=== PATIENT | male | born 1990 | race Caucasian/White ===

== ENCOUNTER 2025-04-11 20:27 | Observation (INO) | payer OTHER, SELFPAY ==
[2025-04-11 12:47] VITALS: BP 151/96
[2025-04-11 13:09] LABS: % Basophils 0.4 % (0-2); % Eosinophils 0.2 % (0-6); % Immature Granulocytes 0.5 % (0-0.5); % Monocytes 6.3 % (1.7-9.3); % Neutrophils 72.6 % (42.2-75.2); Absolute Lymphocytes 1.6 10^3/uL (1.2-3.4); Absolute Monocytes 0.5 10^3/uL (0.1-0.6); Hematocrit 45.4 % (39.0-52.0); Hemoglobin 15.7 g/dL (13.0-18.0); Mean Corp Hgb Conc. 34.6 g/dL (33.0-37.0); Mean Corpuscular Hgb 27.8 pg (27.0-31.0); Mean Corpuscular Volume 80.4 fL (80.0-94.0); Mean Platelet Volume 9.9 fL (7.4-10.4); Nucleated Red Blood Cells % 0 % (-); Platelet Count 242 10^3/uL (130-400); Red Blood Cell Count 5.65 10^6/uL (4.70-6.10); Red Cell Dist. Width 12.8 % (11.5-14.5); White Blood Cell Count 8.2 10^3/uL (4.8-10.8)
[2025-04-11 13:30] LABS: ALT (SGPT) 34 U/L (0-50); AST (SGOT) 30 U/L (17-59); Albumin 4.9 g/dl (3.5-5.0); Alkaline Phosphatase 67 U/L (38-126); Blood Urea Nitrogen 18 mg/dl (9-20); Calcium 9.8 mg/dl (8.4-10.2); Carbon Dioxide 26 mmol/L (22-30); Chloride 105 mmol/L (98-107); Glucose 112 mg/dl (70-99); Lipase 50 U/L (23-300); Potassium 4.1 mmol/L (3.5-5.1); Sodium 139 mmol/L (135-145); Total Bilirubin 1.7 mg/dl (0.2-1.3); Total Protein 7.9 g/dl (6.3-8.2); eGFR > 60.00
--- NOTE | 2025-04-11 15:17 | ED.GENMED ---
History of Present Illness
General
Chief Complaint: Abdominal Symptoms
Source: patient
Exam Limitations: none
Time Seen by Provider: 04/11/25 15:04
Nursing documentation reviewed up to this point in time: agreed with
History of Present Illness
History of Present Illness:
patient without any significant past medical history, presents ED secondary to worsening abdominal pain over the past 5 hours, which developed while he was at work this morning. Abdominal pain described as sharp, nonradiating, without any
alleviating or exacerbating factors. Denies fever or chills. Denies nausea or vomiting. Patient does report a bout of diarrhea this morning, which is not unusual for him. Patient did not experience any pain when he woke up this morning. Patient
reports having had bananas and multivitamins, prior to start of his pain. Denies previous history of similar symptoms. Denies sick contact. Denies recent change in diet. Denies recent travel. Denies previous history of similar symptoms. Denies
difficulty with urination. Denies smoking, but does report drinking occasionally. Patient does report having had 3 cans of twisted tea last night with dinner.
Review of Systems
Review of Systems
Allergies reviewed?: Yes
All Other Systems: ROS reviewed and negative except as documented in HPI and ROS
Constitutional: Reports no symptoms; Denies fever
EENT: Reports no symptoms
Respiratory: Reports no symptoms
Cardiac: Reports no symptoms
ABD/GI: Reports abdominal pain and diarrhea; Denies vomiting
Musculoskeletal: Reports no symptoms
Skin: Reports no symptoms
Neurological: Reports no symptoms
Phy Exam
Physical Exam
Physical Exam:
Physical Exam
General: mild painful distress, not acutely ill. afebrile
Head: nc/at. eomi
Neck: supple. normal range of motion.
Heart: s1/s2 regular rate and rhythm
Lungs: no acute respiratory distress. clear bilaterally
Abdomen: normal bowel sounds. moderate radha-umbilical tenderness to palpation, without mild guarding. no distention
Neuro: alert and oriented x 3. no focal neurological deficits
Skin: no rash
Psychiatric: well kept. interactive and cooperative
Extremities: no edema. no calf tenderness
Course
Orders/Labs/Results
Orders:
Orders
04/11/25 13:03
Complete Blood Count/With Diff Urgent
Comprehensive Metabolic Panel Urgent
Lipase Urgent
04/11/25 15:13
HYDROmorphone [Dilaudid] 0.5 mg IV NOW STA
Ondansetron Injectable [Zofran] 4 mg IV NOW STA
04/11/25 15:15
0.9% Sodium Chloride 500 ml [Nss] 500 ml IV BOLUS
04/11/25 15:19
Ondansetron Injectable [Zofran] 4 mg IV NOW STA
04/11/25 15:38
Urinalysis Reflex To Culture Urgent
Date Specimen was Collected: 04/11/25
Time Specimen was Collected: 15:33
Urine Microscopic Reflex Cult Urgent
04/11/25 15:53
Fentanyl Citrate/Pf [Sublimaze] 50 mcg IV NOW STA
04/11/25 15:58
CT Abd/pelvis W Iv Cont Urgent
Comment:
Reason For Exam: periumbilical tenderness
04/11/25 18:44
Lactate Level [Lactic Acid] Urgent
04/11/25 19:57
Admit/Transfer Patient As Directed
Co-Sign Provider:
Level of Care: Observation services
Assign to:: Medical/Surgical
Physician / Group: Gary
Diagnosis: SBO v enteritis
PRN Pain Medication Management As Directed
May give lesser potent ordered pain med per pt: Yes
preference::
Protocol:: Medication orders for pain may be administered in a
manner that supports deferring to patient preference
when the pt is:
- Requesting an ordered lesser potent pain medication.
Least to most potent pain medications are defined
as: acetaminophen < NSAID < tramadol < opioids
(morphine, oxycodone, hydromorphone).
- Requesting a lesser dose of the same medication IF
ORDERED.
- Requesting a less intrusive route of administration
if both routes are prescribed by the provider (PO <
IV).
04/11/25 19:58
Code Status As Directed
Resuscitation Status: Full Code
Abnormal Lab Results
04/11/25 04/11/25
13:03 15:38
Lymphocytes % 20.0 L %
(20.5-51.1)
Glucose 112 H mg/dl
(70-99)
Total Bilirubin 1.7 H mg/dl
(0.2-1.3)
Urine Ketones 3+ A
(Negative)
Ur Occult Blood Reflex 2+ A
(Negative)
Urine RBC 3-6 A /HPF
(0-2)
Urine Bacteria (Reflex) Few A
(Negative)
Urine Albumin (Reflex) 2+ A
(Neg - Trace)
04/11/25 13:03
04/11/25 13:03
Vital Signs
Initial and Last Documented VS:
Initial Vital Signs
Temp Pulse Resp BP Pulse Ox
98.6 F 71 16 151/96 99
04/11/25 12:47 04/11/25 12:47 04/11/25 12:47 04/11/25 12:47 04/11/25 12:47
Last Documented Vital Signs
Temp Pulse Resp BP Pulse Ox
98.6 F 71 16 136/76 94
04/11/25 12:47 04/11/25 12:47 04/11/25 12:47 04/11/25 19:03 04/11/25 22:00
MDM/Problems Addressed
MDM/Problems Addressed:
CT report reviewed and discussed with patient and family. Discussed with on-call surgery, Dr. Cruz, via [place] text. Feels that CT findings are less likely SBO. As such recommends potential repeat CT abdomen pelvis with oral contrast, if
symptoms persist. Patient will be admitted to hospitalist service tonight for observation.
*Critical Care Note
Total Time (30-74mins, 75-104mins- exclusive of procedures): Not Applicable
ED Attending Note
-
Portions of this chart may have been created with voice recognition software.� Occasional wrong word or��sound alike� substitutions may have occurred due to the inherent limitations of voice recognition software.
Discharge Plan
Departure
Patient Disposition: Admit
Date of Disposition: 04/11/25
Time of Disposition: 19:19
Admit to: Med/Surg
Presentation/result/management discussed w/ accepting MD/DO: Hospitalist
Discharge Problem:
Abdominal pain, Abnormal CT of the abdomen
Interventions
Interventions:
*Risk Screen - Suicide Last Done: 04/11/25 12:49
*General Assessment Last Done: 04/11/25 19:00
*Neglect/Abuse Screening Last Done: 04/11/25 12:49
*ED- Fall Risk Assessment Last Done: 04/11/25 19:00
*ED COVID-19 Vaccine History Last Done: 04/11/25 15:45
YA-Zokodz-Omkaaqfqij Assessment Last Done: 04/11/25 15:45
[2025-04-11] MEDS: ZOFRAN 4 MG IV (15:31)
[2025-04-11] MEDS: NSS 500 IV (15:31)
[2025-04-11] MEDS: DILAUDID 0.5 MG IV (15:31)
[2025-04-11] MEDS: SUBLIMAZE 50 MCG IV (15:58)
[2025-04-11 16:09] LABS: Urine Albumin 2+ (Neg - Trace); Urine Bilirubin Negative (Negative); Urine Character Clear (Clear); Urine Color Yellow; Urine Glucose Negative (Negative); Urine Ketone 3+ (Negative); Urine Leukocyte Negative (Negative); Urine Nitrite Negative (Negative); Urine Occult Blood 2+ (Negative); Urine Specific Gravity 1.015 (<1.030); Urine Urobilinogen Negative (Neg - 1+)
[2025-04-11 17:03] LABS: Urine Bacteria Few (Negative); Urine Squamous Cell 0-2 /LPF (Few); Urine White Cell 0-2 /HPF (0-5)
[2025-04-11 17:15] VITALS: BP 122/87
[2025-04-11 19:03] VITALS: BP 136/76
--- NOTE | 2025-04-11 20:01 | HPS.HSE ---
Family Physician
-
Family Physician: * NONE
Chief Complaint
-
Abd Pain, N/V
History of Present Illness
Patient is a 34y M with no significant PMH who presents to ED complaining of abdominal pain. Patient states that he woke this AM feeling well. He had iced coffee, a banana and a multivitamin. Later in the AM he noted lower abdominal pain while
driving. The pain persisted throughout the morning - migrating to the upper abdomen then central abdomen with radiation into the back. Patient states that the pain became more severe. He had a single, loose, non-bloody stool early this AM.
Patient presented to the ED for further evaluation. While in the ED his symptoms became significantly worse. He was writhing in pain. He had multiple episodes of non-bloody, bilious emesis without any appreciable change in his symptoms.
Patient received minimal relief with meds here in the ED.
Around 4:30 PM, patient states that he felt a sharp pain in the L abdomen. Following this his other symptoms dramatically improved.
At the time of my examination, patient was resting comfortably with only minimal abdominal discomfort.
He denies any prior history of similar symptoms.
Medical History
Past Medical History
Past Medical History: Reports None
Past Surgical History: Reports None
Social History
Tobacco: Non-smoker
Alcohol: Occasional
Drug: None
Family History
Family History: Not pertinent
Allergies / Home Medications
Allergies reflects when Allergies were last updated in [employer].
Home Medications with original date entered in [employer]
Allergy/Medication List:
Allergies
Allergy/AdvReac Type Severity Reaction Status Date / Time
No Known Allergies Allergy Unverified 04/11/25 12:49
Home Medications
therapeutic multivitamin 1 tab PO DAILY 04/11/25
Review of Systems
-
History Source: Patient
A 12 point ROS was completed and negative except as noted: Yes
Constitutional: Denies Fever, Fatigue or Chills
Respiratory: Denies Cough or Trouble Breathing
Cardiac: Denies Chest Pain or Palpitations
Abdomen/GI: Reports Abdominal Pain, Nausea, Vomiting and Diarrhea; Denies Bloody Stools or Black Stools
: Denies Dysuria or Frequency
Musculoskeletal: Denies Joint Pain or Edema
Neurological: Denies Dizzy or Headache
Physical Exam
Vital Signs
Vital Signs
Temp Pulse Resp BP Pulse Ox
98.6 F 71 16 136/76 99
04/11/25 12:47 04/11/25 12:47 04/11/25 12:47 04/11/25 19:03 04/11/25 19:45
Physical Exam
General: Other (34y M in no distress.)
HEENT: Moist mucous membranes and PERRLA
Respiratory: Clear; No Wheezes, Rales or Rhonchi
Cardiac: S1/S2 and Regular Rhythm; No Murmur
GI: Soft, Non Distended, Normal Bowel Sounds and Other (Mild L sided / epigastric abdominal tenderness without rebound / guarding.)
Musculoskeletal: No Clubbing, No Cyanosis and No Edema
Neuro: AO x 3
Laboratory Results
-
04/11/25 13:03
04/11/25 13:03
Laboratory Results
Lactic Acid 1.0 mmol/L (0.7-2.0) 04/11/25 18:44
Total Bilirubin 1.7 mg/dl (0.2-1.3) H 04/11/25 13:03
AST 30 U/L (17-59) 04/11/25 13:03
ALT 34 U/L (0-50) 04/11/25 13:03
Alkaline Phosphatase 67 U/L (38-126) 04/11/25 13:03
Lipase 50 U/L (23-300) 04/11/25 13:03
Impression/Plan
-
A/P: Patient is a 34y M with no significant PMH who presents to ED complaining of abdominal pain since this AM.
SBO v Enteritis
- Observe overnight for further evaluation and treatment.
- Clinical history / imaging sounds most c/w SBO given severe symptoms, multiple episodes of N/V and abrupt resolution of symptoms.
- Afebrile, no leukocytosis.
- Monitor for any new / recurrent symptoms.
- Check stool studies if further diarrhea.
- Pain control, antiemetics, IVFs, etc.
- Sips of clears for now and advance diet if no new / worsening symptoms.
- Surgery evaluation in the AM for additional recommendations.
DVT Prophylaxis: SCDs
Code Status: Full
[2025-04-11 20:43] VITALS: BMI 32.4
[2025-04-11] MEDS: FLUSH (NSS) 1 FLUSH IV (21:39)
[2025-04-11 23:39] VITALS: BP 149/81
[2025-04-11] MEDS: LR 1000 IV (23:42)
[2025-04-11] MEDS: TYLENOL 650 MG PO (23:46)
[2025-04-12 01:55] VITALS: BP 133/72
[2025-04-12 06:01] LABS: Hematocrit 43.9 % (39.0-52.0); Hemoglobin 14.7 g/dL (13.0-18.0); Mean Corp Hgb Conc. 33.5 g/dL (33.0-37.0); Mean Corpuscular Hgb 27.6 pg (27.0-31.0); Mean Corpuscular Volume 82.4 fL (80.0-94.0); Mean Platelet Volume 10.1 fL (7.4-10.4); Platelet Count 228 10^3/uL (130-400); Red Blood Cell Count 5.33 10^6/uL (4.70-6.10); Red Cell Dist. Width 13.1 % (11.5-14.5); White Blood Cell Count 8.4 10^3/uL (4.8-10.8)
[2025-04-12 06:20] LABS: ALT (SGPT) 30 U/L (0-50); AST (SGOT) 27 U/L (17-59); Alkaline Phosphatase 57 U/L (38-126); Blood Urea Nitrogen 15 mg/dl (9-20); Calcium 8.8 mg/dl (8.4-10.2); Carbon Dioxide 25 mmol/L (22-30); Chloride 108 mmol/L (98-107); Direct Bilirubin 0.1 mg/dl (0.0-0.4); Estimated Creatinine Clearance > 125 ml/min; Glucose 94 mg/dl (70-99); Sodium 140 mmol/L (135-145); Total Bilirubin 1.8 mg/dl (0.2-1.3); Total Protein 6.7 g/dl (6.3-8.2); eGFR > 60.00
[2025-04-12] MEDS: PROTONIX 40 MG PO (08:32)
[2025-04-12 08:39] VITALS: BP 129/73
--- NOTE | 2025-04-12 09:36 | CON.GS ---
Addendum entered and electronically signed by Thomas Rubio MD 04/12/25 11:13:
Patient is a 34 yo M with no pertinent PMH who presented to the ER with epigastric and LLQ abdominal pain. Symptoms began acutely yesterday morning. No clear exacerbating episodes or triggers; no sick contacts no large volume of fibers foods.
[place] well prior to the onset of his symptoms. His symptoms progressed in severity over the course of the day prompting presentation to the ER. Multiple episodes of bilious vomiting while in the ER. No fevers or chills. Yesterday evening he
states he had an acute event of epigastric abdominal pain following which his symptoms improved. Currently states that his abdominal pain has significantly improved and almost resolved. He is passing flatus. No BM. Denies any prior history of GI
issues, chronic abdominal pain, bloody or mucousy stools. No family history notable for IBD. No prior attacks of diverticulitis.
Gen: NAD
Abd: soft, NT/ND, non-peritoneal
Labs and CT scan imaging were reviewed
Patient is a 34 yo M p/w abdominal pain likely secondary to a brief partial SBO versus gastroenteritis
No indication for surgical intervention. Clinically improved with passage of flatus and decreased abdominal pain. Recommend a trial of dietary advancement throughout the day. If symptoms recur can consider repeat CT scan imaging with oral
contrast. All questions answered.
-- No plans or indication for surgery
-- Clears, ADAT to LRD
-- Repeat CT with PO contrast if symptoms recur
-- Call with questions or concerns
Original Note:
Consultation
-
Date/Time Consultation Requested: 04/11/25 23:18
Date/Time Consultation Performed: 04/12/25 9:37
Requesting Provider: Yayo Carr
Performing Provider: Thomas Hsu
Reason for Consultation: Abdominal Pain
Medical History
-
Chief Complaint: Severe acute abdominal pain
History of Present Illness:
Patient is a 34-year-old male, full code with no significant past medical history who presented to the emergency department complaining of severe, acute, epigastric (radiating to the back) abdominal pain associated with vomiting. The pain started
on morning of 04/11/2025 after the patient had breakfast and was driving his car. The pain eventually progressed in severity and he admitted himself to the emergency room. While in the emergency room for further evaluation, he had multiple episodes
of bilious vomiting. He denies any similar prior history. No fever, chills, hematemesis, GI bleeding, weight loss, change in bowel habits. No history of prior abdominal surgeries, inflammatory bowel disease, or hernias.
On admission, labs are normal except for elevated total bilirubin of 1.[address] with contrast shows focal segment of small bowel mild dilatation, with wall enhancement and slight thickening as well as associated mesenteric edema, most likely represents enteritis and closed loop small bowel obstruction/focal
area of angioedema or differential considerations.
Patient has passed flatus.
Past Medical History
Past Medical History: Other (See HPI)
Past Surgical History: None
Social History
Tobacco: Non-Smoker
Alcohol: Occasional
Drug: None
Family History
Family History: Reviewed & Not Pertinent
Allergies / Home Medications
Allergy/AdvReac Type Severity Reaction Status Date / Time
No Known Allergies Allergy Unverified 04/11/25 12:49
�Medication �Instructions �Recorded �Confirmed �Type
therapeutic multivitamin 1 tab PO DAILY 04/11/25 04/11/25 History
Review of Systems
-
History Source: Patient
All other systems: Negative unless noted
Abdomen/GI: Abdominal Pain, Nausea and Vomiting
A 10 point review of systems was completed, and was negative except as per HPI.
Physical Exam
Vital Signs
Temp Pulse Resp BP Pulse Ox
97.2 F 72 18 129/73 96
04/12/25 01:55 04/12/25 08:39 04/12/25 08:39 04/12/25 08:39 04/12/25 08:39
04/11/25 04/12/25 04/13/25
06:59 06:59 06:59
Actual Weight 102.4 kg
Body Mass Index (BMI) 32.4
Lab Results
04/12/25 05:17
04/12/25 05:17
WBC 8.4 10^3/uL (4.8-10.8) 04/12/25 05:17
Hgb 14.7 g/dL (13.0-18.0) 04/12/25 05:17
Hct 43.9 % (39.0-52.0) 04/12/25 05:17
Plt Count 228 10^3/uL (130-400) 04/12/25 05:17
Abs Immat Gran (auto) 0.0 10^3/uL (0-0.05) 04/11/25 13:03
Neutrophils % 72.6 % (42.2-75.2) 04/11/25 13:03
Physical Exam
GI: Soft, Non Distended, Normal Bowel Sounds and Tender (Mild tenderness to palpation in the epigastric/left quadrant of abdomen)
Data Reviewed
-
CT Scan: Report Reviewed by me and Discussed with Physician
Labs: Labs Reviewed by me and Discussed with Physician
Assessment / Plan
-
Epigastric/left quadrant abdominal pain:
- Differential diagnosis is SBO sv Enteritis vs focal area of angioedema
- Abdominal pelvis CT with contrast shows focal segment of small bowel mild dilatation, with wall enhancement and slight thickening as well as associated mesenteric edema, most likely represents enteritis and closed loop small bowel
obstruction/focal area of angioedema or differential considerations
- Vitals stable and patient is afebrile. Labs show normal WBC count.
- Physical examination shows normal bowel sounds, non distended abdomen, and mild epigastic/ left quadrant tenderness. Patient has passed flatus.
- Continue on Dilaudid PRN/ Tylenol for Pain control, antiemetics, Lactated ringers IVF.
- Patients diet upgraded to clears
- Based on physical examination ( mild tenderness, no distention of abdomen, bowel sounds present, passing flatus) , imaging studies ( no transition point, normal bowel wall thickness, no signs of ischemia, no free fluid/air), and labs (no
leuckocytosis, electrolyte abnormalities, normal bun/cr, normal lactate), this patient most likely does not have SBO and is not a candidate for surgery.
- Can consider repeating CT scan if there are new clinical changes like increasing abdominal pain/tenderness, fever, vomiting, leucocytosis, or no clinical improvement in patients symptoms.
[2025-04-12] MEDS: LR 1000 IV ×2 (10:20→19:52)
--- NOTE | 2025-04-12 10:24 | CM ---
CM met with pt bedside
Pt [place] with his spouse [place], 1STE
Pt is indep with his ADLs, denies use of DMEs, works FT out of home
Denies financial insecurities
PCP- none, recently retired and has not established new PCP, resident clinic info provided
Rx- [facility] [address]
Pt is indep throughout room
OBS form verbally reviewed- copy provided
Discharge Disposition- anticipate home no needs
--- NOTE | 2025-04-12 13:09 | W.PN.HOSP.TC ---
Today's Communication/Plan
-
monitor vitals
see plan
trial of clears
cw IVF
Assessment / Plan
Assessment / Plan
General: Other (34y M in no distress.)
HEENT: Moist mucous membranes and PERRLA
Respiratory: Clear; No Wheezes, Rales or Rhonchi
Cardiac: S1/S2 and Regular Rhythm; No Murmur
GI: Soft, Non Distended, Normal Bowel Sounds and epigastric mildly tender
Musculoskeletal: No Edema
Neuro: AO x 3
SBO v Enteritis
Symptoms mildly improving, trial of clears. Continue with fluids. Surgery following
- Clinical history / imaging sounds most c/w SBO given severe symptoms, multiple episodes of N/V and abrupt resolution of symptoms.
- Monitor for any new / recurrent symptoms.
- Check stool studies if further diarrhea.
- Pain control, antiemetics, IVFs, etc.
DVT Prophylaxis: SCDs
Code Status: Full
Anticipated Discharge: Within 24 hours
Subjective/Interval History
-
Date of Service: April 12, 2025
denies nausea
Objective Data
-
Labs:
Laboratory Results
04/12/25
05:17
WBC 8.4
Hgb 14.7
Hct 43.9
Plt Count 228
Sodium 140
Potassium 4.0
Chloride 108 H
Carbon Dioxide 25
BUN 15
Creatinine 0.8
Glucose 94
Calcium 8.8
Total Bilirubin 1.8 H
AST 27
ALT 30
Alkaline Phosphatase 57
Vital Signs:
Vital Signs
Temp Pulse Resp BP Pulse Ox
97.4 F 72 18 129/73 96
04/12/25 08:39 04/12/25 08:39 04/12/25 08:39 04/12/25 08:39 04/12/25 08:39
I&O
04/11/25 04/12/25 04/13/25
06:59 06:59 06:59
Intake Total 700 / 700
Balance 700 / 700
[2025-04-12 15:46] VITALS: BP 133/72
[2025-04-12 23:50] VITALS: BP 138/87
[2025-04-13] MEDS: LR 1000 IV (05:17)
[2025-04-13 06:38] LABS: % Basophils 0.5 % (0-2); % Eosinophils 1.1 % (0-6); % Immature Granulocytes 0.5 % (0-0.5); % Lymphocytes 29.3 % (20.5-51.1); % Neutrophils 60.6 % (42.2-75.2); Absolute Eosinophils 0.1 10^3/uL (0-0.7); Absolute Lymphocytes 1.9 10^3/uL (1.2-3.4); Absolute Monocytes 0.5 10^3/uL (0.1-0.6); Hematocrit 45.1 % (39.0-52.0); Hemoglobin 14.8 g/dL (13.0-18.0); Mean Corp Hgb Conc. 32.8 g/dL (33.0-37.0); Mean Corpuscular Hgb 27.2 pg (27.0-31.0); Mean Corpuscular Volume 82.8 fL (80.0-94.0); Mean Platelet Volume 10.3 fL (7.4-10.4); Nucleated Red Blood Cells % 0 % (-); Platelet Count 211 10^3/uL (130-400); Red Blood Cell Count 5.45 10^6/uL (4.70-6.10); White Blood Cell Count 6.5 10^3/uL (4.8-10.8)
[2025-04-13 06:54] LABS: ALT (SGPT) 30 U/L (0-50); AST (SGOT) 25 U/L (17-59); Albumin 3.9 g/dl (3.5-5.0); Alkaline Phosphatase 54 U/L (38-126); Blood Urea Nitrogen 15 mg/dl (9-20); Calcium 9.1 mg/dl (8.4-10.2); Carbon Dioxide 28 mmol/L (22-30); Chloride 109 mmol/L (98-107); Estimated Creatinine Clearance > 125 ml/min; Glucose 92 mg/dl (70-99); Potassium 4.3 mmol/L (3.5-5.1); Sodium 142 mmol/L (135-145); Total Bilirubin 1.4 mg/dl (0.2-1.3); Total Protein 6.6 g/dl (6.3-8.2); eGFR > 60.00
[2025-04-13 07:33] VITALS: BP 135/82
[2025-04-13] MEDS: PROTONIX 40 MG PO (08:02)
--- NOTE | 2025-04-13 10:38 | CM ---
Patient seen at bedside
OBS status
pLAN: Home, no needs
parents to transport
--- NOTE | 2025-04-13 11:57 | W.PN.HOSP.TC ---
Today's Communication/Plan
-
Monitor vital signs see below
DC further fluids
Now patient tolerating diet
Discharge today
Time of discharge 36 minutes
Assessment / Plan
Assessment / Plan
General: Other (34y M in no distress.)
HEENT: Moist mucous membranes and PERRLA
Respiratory: Clear; No Wheezes, Rales or Rhonchi
Cardiac: S1/S2 and Regular Rhythm; No Murmur
GI: Soft, Non Distended, Normal Bowel Sounds and epigastric mildly tender
Musculoskeletal: No Edema
Neuro: AO x 3
SBO v Enteritis
Symptoms improving, now tolerating low-dose diet. Surgery following. Discharge today with outpatient follow-up
Appears nausea and vomiting resolved. No signs of further diarrhea
Stool studies pending, however symptoms improving. Patient wants to go home
DVT Prophylaxis: SCDs
Code Status: Full
Anticipated Discharge: Today
Subjective/Interval History
-
Date of Service: April 13, 2025
feeling better; no nausea
Objective Data
-
Labs:
Laboratory Results
04/13/25
06:07
WBC 6.5
Hgb 14.8
Hct 45.1
Plt Count 211
Sodium 142
Potassium 4.3
Chloride 109 H
Carbon Dioxide 28
BUN 15
Creatinine 0.8
Glucose 92
Calcium 9.1
Total Bilirubin 1.4 H
AST 25
ALT 30
Alkaline Phosphatase 54
Vital Signs:
Vital Signs
Temp Pulse Resp BP Pulse Ox
98.7 F 66 17 135/82 97
04/13/25 07:33 04/13/25 07:33 04/13/25 07:33 04/13/25 07:33 04/13/25 07:33
I&O
04/12/25 04/13/25 04/14/25
06:59 06:59 06:59
Intake Total 700 / 700 240 / 240
Balance 700 / 700 240 / 240
--- NOTE | 2025-04-13 12:08 | W.DCSUMMARY ---
Discharge Summary
Discharge Data
Date of Admission: 04/11/25
Date of Discharge: 04/13/25
-
Pending Results: No
Hospital Course
34-year-old male that came to the hospital with abdominal pain along with nausea and vomiting. Imaging was consistent with possible small bowel obstruction or enteritis. Patient was seen by surgery who thought patient symptoms could likely be
secondary to enteritis. Patient symptoms continue to improve over time with fluids. He was able to tolerate low residue diet and was then deemed stable to be discharged home since he was improving. On discharge instructed to follow-up with all
his physicians outpatient.
Discharge Plan
-
Patient Disposition: Home (Routine Discharge)
Discharge Diagnosis/Procedures: Enteritis versus SBO
Diet: Low Residue
Activity: As tolerated
Driving Restrictions: As prior to admission
Bathing Restrictions: None
Referrals:
NONE,* [Family Provider] - in less than 1 week
Prescriptions:
New
pantoprazole 40 mg Tablet,Delayed Release (Dr/Ec)
40 mg PO DAILY Qty: 30 0RF
Continued
therapeutic multivitamin Tablet
1 tab PO DAILY
Discharge Orders:
Discharge Patient (As Directed); Ordered 04/13/25
Ordered By: Avi Vega
Discharge Date and Time
Discharge Date/Time: 04/13/25 13:41
Print Language: [place]
[2025-04-13 12:10] VITALS: BP 133/75
== END 2025-04-13 13:41 | disposition home or self-care (01) ==
LOC: 3 WEST ACU 20:27
PROVIDERS: Emergency Medicine; ADMITTING PHYSICIAN Hospitalist; ATTENDING PHYSICIAN Internal Medicine; EMERGENCY PHYSICIAN Emergency Medicine; OTHER PHYSICIAN Surgery
DX: R11.2 Nausea with vomiting, unspecified (principal); R11.14 Bilious vomiting; R19.7 Diarrhea, unspecified; R10.9 Unspecified abdominal pain; R94.8 Abnormal results of function studies of other organs and systems; K76.0 Fatty (change of) liver, not elsewhere classified; N32.3 Diverticulum of bladder
CPT/HCPCS: 74177; 80053; 81003; 81015; 82248; 83605; 83690; 85025; 85027; 87045; 87046; 87427; G0378; Q9967

== ENCOUNTER 2025-08-09 06:28 | Day surgery (SDC) | payer OTHER, SELFPAY | END 2025-08-09 13:32 | disposition home or self-care (01) | LOC: GI 06:28 | PROVIDERS: ATTENDING PHYSICIAN Internal Medicine | DX: R19.4 Change in bowel habit (principal); K64.8 Other hemorrhoids | CPT/HCPCS: 45380; 88305 ==

== ENCOUNTER → 2025-09-17 10:31 | Outpatient (REF) | payer OTHER, SELFPAY | LOC: REG 10:31 | PROVIDERS: ATTENDING PHYSICIAN Radiology Diagnostic Radiology; FAMILY PHYSICIAN Family Medicine | DX: K52.9 Noninfective gastroenteritis and colitis, unspecified (principal); Z13.89 Encounter for screening for other disorder | CPT/HCPCS: 70030 ==

== ENCOUNTER → 2025-09-20 08:23 | Outpatient (REF) | payer OTHER, SELFPAY | LOC: MRI 3T 08:23 | PROVIDERS: ATTENDING PHYSICIAN Internal Medicine; FAMILY PHYSICIAN Family Medicine | DX: K52.9 Noninfective gastroenteritis and colitis, unspecified (principal); R15.2 Fecal urgency | CPT/HCPCS: 72197; 74183; A9575 ==